=== PATIENT | female | born 1955 | race Caucasian/White ===

== ENCOUNTER → 2020-11-17 14:54 | Outpatient (BNVA) | payer OTHER, SELFPAY | PROVIDERS: Family Provider Family Medicine; PCP Family Medicine; Visit Provider Podiatrist Foot & Ankle Surgery | DX: M79.671 Pain in right foot (principal); M79.672 Pain in left foot | CPT/HCPCS: 73630 ==

== ENCOUNTER → 2021-07-25 00:01 | Outpatient (BNVA) | payer OTHER, SELFPAY | PROVIDERS: Family Provider Family Medicine; PCP Family Medicine; Visit Provider Podiatrist Foot & Ankle Surgery | DX: Z01.812 Encounter for preprocedural laboratory examination (principal); Z20.822 Contact with and (suspected) exposure to COVID-19 | CPT/HCPCS: 87635 ==

== ENCOUNTER 2021-07-29 05:45 | Day surgery (SDC) | payer OTHER, SELFPAY ==
[2021-07-28 12:07] VITALS: BMI 21.2
[2021-07-29 06:11] VITALS: BP 137/66; PULSE 60; RESP 18; TEMP 36.6; O2SAT 98
--- NOTE | 2021-07-29 06:24 | P.OP_ITS ---
Operative Report Date of procedure: July 29, 2021 Pre-op Diagnosis: Painful hardware right foot Post-op Diagnosis: Same Post-op Findings: None Procedure Done: Hardware Removal right foot Manager Services: Jake Anesthesia: SHARITA Estimated blood loss: 5 Tourniquet time: 69 IV fluids: 0 Urine output: 0 Complications: none Findings: None Condition: stable Disposition: PACU Procedure: Under mild sedation the patient was brought to the operating room and remained on the gurney in supine position. A timeout was performed. Anesthesia administered by the anesthesia service. Local anesthesia injected by myself consisting of 0.5% Marcaine plain total of 20 cc in a right Chang block fashion. Well-padded pneumatic tourniquet applied to the right ankle. Right lower extremity was scrubbed, prepped and draped utilizing normal aseptic technique. Right foot was then exanguinated with an Esmarch bandage and a tourniquet inflated to 250 mmHg. Attention was directed to the dorsal medial aspect of the right first metatarsal head and diaphyseal metaphyseal flare were 2 screws were prominent palpable and tenting the skin. Directly over prominent hardware a linear longitudinal incision was made with #15 blade through skin with dissection carried down through subcutaneous tissue utilizing blunt and sharp technique. Care was taken to retract and preserve neurovascular and tendinous structures. Bleeders were ligated and cauterized as necessary. Total of 2 screws 2.5 mm in diameter were removed from the first metatarsal, incision site was flushed with copious amounts of sterile saline solution and closed in a layered fashion. Subcutaneous tissue closed with 4-0 Vicryl and skin closed with 5-0 Monocryl. Incision was reinforced with benzoin and Steri-Strips. Incision was then dressed with Adaptic, sterile 4 x 4, Kerlix and Waldemar wrap. Postop shoe was applied and tourniquet deflated with a prompt hyperemic response noted to the distal digits of the right foot. Patient tolerated the procedure and anesthesia well and was transferred to the PACU with vital signs stable vascular status intact. Following a period of postoperative monitoring she will be discharged home may be weightbearing as tolerated she was prescribed Percocet 10/325 to be taken every 6 hours as needed for pain she is to elevate her foot while resting was also prescribed Zofran to be taken every 8 hours as needed for nausea.
--- NOTE | 2021-07-29 06:24 | P.HPUD_ITS ---
Surgery/Procedure H&P Update DATE OF PROCEDURE: July 29, 2021 DATE H&P PERFORMED: 07/25/21 H&P UPDATE INFORMATION: I have reviewed H&P completed within last 30 days, I have examined patient prior to procedure, No changes to prior documentation and H&P is in [facility] EMR on date indicated PREOP DIAGNOSIS: Painful hardware right foot PLANNED PROCEDURE: Operation Date: 07/29/21 07:00 Proposed Procedures p Hardware Removal right foot [id number] M79.673(Right) - Renny Bello DPM s poss Cheilectomy(Right) - Renny Bello DPM
[2021-07-29] MEDS: sodium chloride 0.9% 1,000 ML 30 ML IV (06:28)
--- NOTE | 2021-07-29 06:39 | XR_ITS ---
WS: [id number] Right foot, 3 views, today Clinical Data: Postop hardware removal right first metatarsal Comparison: Right foot, 11/17/2020. Findings: The 2 distal screws in the right first metatarsal have been removed. The distal screws in the head of the right second metatarsal and the mid shaft screws in the right fifth metatarsal remaining. XR/XR foot RT min 3V* [id number] Impression: Removal of the 2 distal screws from the right first metatarsal.
--- NOTE | 2021-07-29 06:45 | ANES.PREANE2 ---
Pre-Anesthetic Assessment Pre-Anesthetic Assessment: Height/Weight: Height 1.63 m Weight 56.245 kg Temp Pulse Resp BP Pulse Ox 97.8 F 60 18 137/66 98 07/29/21 06:11 07/29/21 06:11 07/29/21 06:11 07/29/21 06:11 07/29/21 06:11 Preop Diagnosis: Painful hardware right foot Proposed Procedure: Operation Date: 07/29/21 07:00 Proposed Procedures p Hardware Removal right foot [id number] M79.673(Right) - Renny Bello DPM s poss Cheilectomy(Right) - Renny Bello DPM Familial anesthetic complications: None Was Beta Odalys taken within 24 hours: N/A Was Clonidine taken within 24 hours: N/A Last intake: Intake Last Liquid Date 07/28/21 Last Liquid Time 21:00 Last Solid Date 07/28/21 Last Solid Time 19:30 Social: Social History: No alcohol and No tobacco Exam: Pre-Anes Outpt Exam: alert, oriented x 3, clear to auscultation bilaterally and regular rate & rhythm Airway: Submandibular: WNL Cervical ROM: WNL MP: 1 Dentition: Full Additional comments: Recent Botox in lips History/ROS: No significant history except as noted and No significant complaints Pulmonary: Pulmonary: None reported CV/HEM: CV/HEM: None reported : : None reported Hepatic: Hepatic: None reported GI: GI: None reported Metabolic: Metabolic: None reported Musc/skel: Musc/skel: None reported Neuropsych: Neuropsych: None reported Anesthetic Plan: ASA status: 1 Anesthesia: Anesthesia Evaluation, General and MAC Other: We discussed MAC and general anesthesia and their risks and benefits. Patient declined more detailed discussion of serious but less common risk of anesthesia. We discussed spectrum of MAC anesthesia including possibility of recall of intraoperative stimuli including pain/discomfort. Patient agrees to proceed with MAC pending coversation with surgeon. Risk of > 500 ml blood loss (7ml/kg in children): No Meds/Allergies Current Medications: Current Medications Generic Name Dose Route Start Last Admin Trade Name Freq PRN Reason Stop Dose Admin Sodium Chloride 1,000 mls @ 30 ml s/hr 07/29/21 06:00 07/29/21 06:28 Sodium Chloride 0.9% IV 07/30/21 05:59 30 mls/hr .Q24H CONNIE Administration PFSH Anesthesia PFSH: Social History Smoking and tobacco status: never smoked Data Anesthesia Cardiac Studies: No Data to Display
[2021-07-29 08:33] VITALS: BP 94/49; PULSE 66; RESP 11; TEMP 36.1; O2SAT 99
--- NOTE | 2021-07-29 08:36 | P.PCN_ITS ---
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
--- NOTE | 2021-07-29 08:36 | PM.PACU ---
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
[2021-07-29 08:39] VITALS: BP 101/53; PULSE 75; RESP 13; O2SAT 99
[2021-07-29 08:45] VITALS: BP 103/57; PULSE 72; RESP 18; O2SAT 99
[2021-07-29 08:51] VITALS: BP 98/60; PULSE 69; RESP 18; O2SAT 98
[2021-07-29 09:30] VITALS: BP 114/68; PULSE 65; RESP 18; O2SAT 99
--- NOTE | 2021-07-29 12:57 | ANE.PACU2 ---
Inpatient post-anesthesia follow up: Airway intact: Yes Vital signs: Temperature 97.0 F Pulse Rate 65 Respiratory Rate 18 Blood Pressure 114/68 Pulse Oximetry 99 Oxygen Delivery Me thod Room Air Oxygen Flow Rate Fraction of Inspir ed Oxygen Hydration adequate: Yes Nausea and vomiting: No Pain level: 1 Mental status: Baseline
== END 2021-07-29 10:05 | disposition home or self-care (01) ==
PROVIDERS: PCP Family Medicine; Visit Provider Podiatrist Foot & Ankle Surgery
PROC: (CPT 20680; principal; 2021-07-29 07:00)
DX: T84.84XA Pain due to internal orthopedic prosthetic devices, implants and grafts, initial encounter (principal)
CPT/HCPCS: 20680; 73630; C9290; J0690; J2704; J3010; J3490; J7030

== ENCOUNTER → 2022-03-16 08:44 | Outpatient (BNVA) | payer OTHER, SELFPAY | PROVIDERS: PCP Family Medicine; Visit Provider Family Medicine | DX: Z01.818 Encounter for other preprocedural examination (principal) | CPT/HCPCS: 80053; 83036; 85025 ==

== ENCOUNTER → 2022-06-27 09:49 | Outpatient (BNVA) | payer OTHER, SELFPAY | PROVIDERS: PCP Family Medicine; Referring Provider Dermatology; Visit Provider Orthopaedic Surgery | DX: S59.909A Unspecified injury of unspecified elbow, initial encounter (principal) | CPT/HCPCS: 73080 ==

== ENCOUNTER → 2022-06-28 07:40 | Outpatient (BNVA) | payer OTHER, SELFPAY | PROVIDERS: PCP Family Medicine; Visit Provider Family Medicine | DX: Z00.00 Encounter for general adult medical examination without abnormal findings (principal) | CPT/HCPCS: 80053; 80061 ==

== ENCOUNTER → 2023-06-18 08:57 | Outpatient (BNVA) | payer OTHER, SELFPAY | PROVIDERS: PCP Family Medicine; Visit Provider Family Medicine | DX: Z00.00 Encounter for general adult medical examination without abnormal findings (principal); F43.9 Reaction to severe stress, unspecified; G47.00 Insomnia, unspecified; Z79.890 Hormone replacement therapy; Z13.6 Encounter for screening for cardiovascular disorders; E03.9 Hypothyroidism, unspecified | CPT/HCPCS: 80053; 80061; 84443; 85025 ==

== ENCOUNTER → 2024-06-18 08:07 | Outpatient (BNVA) | payer MEDICARE, OTHER, SELFPAY | PROVIDERS: PCP Family Medicine; Visit Provider Family Medicine | DX: G47.00 Insomnia, unspecified (principal); Z79.890 Hormone replacement therapy; Z00.00 Encounter for general adult medical examination without abnormal findings; I10 Essential (primary) hypertension | CPT/HCPCS: 80053; 80061; 84443; 85025 ==

== ENCOUNTER 2024-06-25 10:39 | Outpatient (CLI) | payer MEDICARE, OTHER, SELFPAY ==
--- NOTE | 2024-06-25 11:00 | MM_ITS ---
WS: [id number] BILATERAL SCREENING DIGITAL BREAST MAMMOGRAPHY WITH AMANDA DISPLACEMENT VIEWS. CAD PERFORMED. HISTORY: Z12.39 - Encounter for other screening for malignant neop... COMPARISON: 05/14/2012 Bilateral craniocaudal and mediolateral oblique views are performed with tomosynthesis and SM. Amanda displacement views in CC and MLO projection also performed. Breasts composition: There are scattered areas of fibroglandular density. Prepectoral implants are intact. There are a few scattered calcifications. No new or increasing group of calcifications. No distortion. MM/MM scr tomosynthesis [id number] IMPRESSION: BI-RADS: 2 - Benign. FOLLOW-UP: 1 Year Follow-up
== END 2024-06-25 10:40 | disposition home or self-care (01) ==
LOC: RAD 10:40
PROVIDERS: PCP Family Medicine; Visit Provider Family Medicine
DX: Z12.31 Encounter for screening mammogram for malignant neoplasm of breast (principal); R92.323 Mammographic fibroglandular density, bilateral breasts; Z98.82 Breast implant status; R92.1 Mammographic calcification found on diagnostic imaging of breast
CPT/HCPCS: 77063; 77067

== ENCOUNTER → 2024-12-01 09:41 | Outpatient (BNVA) | payer MEDICARE, OTHER, SELFPAY | PROVIDERS: PCP Family Medicine; Visit Provider Family Medicine | DX: K21.9 Gastro-esophageal reflux disease without esophagitis (principal); M54.9 Dorsalgia, unspecified | CPT/HCPCS: 80053; 83690; 85025 ==

== ENCOUNTER 2024-12-22 07:14 | Outpatient (CLI) | payer MEDICARE, OTHER, SELFPAY ==
--- NOTE | 2024-12-22 08:00 | US_ITS ---
WS: [id number] RIGHT UPPER QUADRANT ULTRASOUND HISTORY: K21.9 - Gastro-esophageal reflux disease without esophagitis COMPARISON: None available. Liver: 12.5 cm in length. Normal size liver and echogenicity. No bile duct dilatation or mass. Portal Vein: Normal hepatopetal flow with monophasic waveform. Gallbladder: Normally distended gallbladder with no stones or wall thickening. CBD: 0.2 cm Pancreas: Normal size and echogenicity. Right kidney: 10.4 cm in length. Normal size and echogenicity. No hydronephrosis or mass. Aorta and IVC: Unremarkable abdominal aorta and IVC. No ascites. US/US gall bladder [id number] IMPRESSION: Normal right upper quadrant ultrasound.
== END 2024-12-22 07:15 | disposition home or self-care (01) ==
PROVIDERS: PCP Family Medicine; Visit Provider Family Medicine
DX: K21.9 Gastro-esophageal reflux disease without esophagitis (principal); M54.9 Dorsalgia, unspecified
CPT/HCPCS: 76705

== ENCOUNTER → 2025-05-21 10:46 | Outpatient (BNVA) | payer MEDICARE, OTHER, SELFPAY | PROVIDERS: PCP Family Medicine; Visit Provider Family Medicine | DX: Z01.89 Encounter for other specified special examinations (principal); E03.9 Hypothyroidism, unspecified | CPT/HCPCS: 80053; 80061; 82306; 82607; 84443; 85025 ==

== ENCOUNTER 2025-07-08 10:50 | Outpatient (CLI) | payer MEDICARE, OTHER, SELFPAY ==
--- NOTE | 2025-07-08 10:55 | MM_ITS ---
WS: [id number] BILATERAL SCREENING DIGITAL BREAST MAMMOGRAPHY WITH AMANDA DISPLACEMENT VIEWS. CAD PERFORMED. HISTORY: SCREENING COMPARISON: 06/25/2024, 06/25/2012 Bilateral craniocaudal and mediolateral oblique views are performed with tomosynthesis and SM. Amanda displacement views in CC and MLO projection also performed. Breasts composition: There are scattered areas of fibroglandular density. Benign coarse calcification lateral LEFT breast. No suspicious masses or calcifications. Prepectoral implants are intact. No capsular contraction. MM/MM scr BI tomosynthesis [id number] IMPRESSION: BI-RADS: 2 - Benign. FOLLOW-UP: 1 Year Follow-up
== END 2025-07-08 10:51 | disposition home or self-care (01) ==
LOC: RAD 10:51
PROVIDERS: PCP Family Medicine; Visit Provider Family Medicine
DX: Z12.31 Encounter for screening mammogram for malignant neoplasm of breast (principal); R92.323 Mammographic fibroglandular density, bilateral breasts; R92.1 Mammographic calcification found on diagnostic imaging of breast; Z98.82 Breast implant status
CPT/HCPCS: 77063; 77067